=== PATIENT | male | born 1970 | race Caucasian/White ===

== ENCOUNTER → 2017-04-28 | Outpatient (CLI) | payer BC ==
[2017-04-28 17:35] LABS: BASO % 0.6 %; BASO ABS # 0.04 K/uL (0-0.2); COMPLETE YES; EOS % 1.6 %; HEMATOCRIT 44.4 % (42-52); IG% 0.2 %; LYMPH % 24.5 %; LYMPH ABS # 1.57 K/uL (1.2-3.4); MEAN CELL VOLUME 87.1 fL (80-100); MEAN CORPUSCULAR HEMOGLOBIN 29.8 pg (25-34); MEAN CORPUSCULAR HGB CONC 34.2 g/dl (32-36); MEAN PLATELET VOLUME 9.9 fL (7.4-10.4); MONO % 6.4 %; NEUT % 66.7 %; PLATELET COUNT 272 K/uL (130-400)
[2017-04-28 17:37] LABS: ALT/SGPT 24 U/L (12-78); BLOOD UREA NITROGEN 13 mg/dl (7-18); BUN/CREATININE RATIO 14.1 (10-20); CALCIUM 9.2 mg/dl (8.5-10.1); CARBON DIOXIDE 25 mmol/L (21-32); CHLORIDE 106 mmol/L (98-107); CHOLESTEROL 163 mg/dl (0-200); CREATININE 0.95 mg/dl (0.60-1.40); GLUCOSE 88 mg/dl (70-99); POTASSIUM 4.1 mmol/L (3.5-5.1); SODIUM 139 mmol/L (136-145)
[2017-04-28 17:40] LABS: ALB/GLOB RATIO 1.1 (0.9-2); ALKALINE PHOSPHATASE 80 U/L (45-117); AST/SGOT 19 U/L (15-37); CHOLESTEROL/HDL RATIO 3.5; HDL CHOLESTEROL 47 mg/dl; LDL CHOLESTEROL CALCULATED 99 mg/dl; TRIGLYCERIDES 85 mg/dl (0-150); VERY LOW DENSITY LIPOPROT CALC 17 mg/dl
[2017-04-29 07:00] LABS: ESTIMATED AVERAGE GLUCOSE 94 mg/dl; HA1C FLAG Normal (Normal)
== END | disposition home or self-care (01) ==
LOC: C.LABBFT 12:30
PROVIDERS: ATTEND Physician Assistant Medical
DX: E55.9 Vitamin D deficiency, unspecified (principal)

== ENCOUNTER → 2017-12-02 | Outpatient (CLI) | payer OTHER ==
[2017-12-02 13:30] LABS: BLOOD UREA NITROGEN 14 mg/dl (7-18); CALCIUM 9.4 mg/dl (8.5-10.1); CARBON DIOXIDE 28 mmol/L (21-32); CREATININE 0.93 mg/dl (0.60-1.40); GLUCOSE 86 mg/dl (70-99); SODIUM 138 mmol/L (136-145)
== END | disposition home or self-care (01) ==
LOC: C.LABBFT 08:29
PROVIDERS: ATTEND Internal Medicine
DX: I10 Essential (primary) hypertension (principal)

== ENCOUNTER 2018-10-22 08:24 | Inpatient (IN) ==
--- NOTE | 2018-09-30 08:47 | Anesthesiology Consultation ---
Date of Service September 30, 2018 Assessment & Plan Chart Review Chart Review: Acceptable Risk for Surgery and Patient NOT seen in Pre Admission Testing Consults Requested none ASA ASA3 Proposed Anesthesia Anesthesia Type: General Anesthesia Line Insertion: Arterial line History Surgery Operation Date: 10/22/18 07:30 Proposed Procedures p L3-L4, L4-L5 Laminectomy and Fusion - Devyn Mccrary DO Height/Weight Height: 5 ft 6 in Weight: 113.398 kg Allergies Allergy/AdvReac Type Severity Reaction Status Date / Time No Known Allergies Allergy Verified 09/30/18 07:50 Medications Home Medications Medication Instructions Recorded Confirmed Last Taken amlodipine 10 mg PO DAILY 09/30/18 09/30/18 Unknown cholecalciferol (vitamin D3) 1,000 unit PO DAILY 09/30/18 09/30/18 Unknown [Vitamin D3] losartan 100 mg PO DAILY 09/30/18 09/30/18 Unknown Past Medical History Medical History Chronic back pain PAIN/TINGLING RADIATING DOWN LEFT LEG. Degenerative disc disease Hypertension Obesity Past Surgical History Surgical History No history of previous surgery History of PONV No Motion Sickness Screening History of Motion Sickness: No Social History Smoking Status: Never smoker Do You Dip or Chew Tobacco: No Hx Alcohol Use: Yes Alcohol type: other alcohol intake frequency: holidays/special occasions only Alcohol Intake Frequency Comment: RARE Hx Substance Use: No substance use type: does not use Exercise / Class Metabolic Activity III < 4 Walking/Shop/Light housework Testing Electrocardiogram Date: 09/28/18 Findings: + NSR @ (at 75) Laboratory Results WBC: 6.35 Hc.6 Hct: 44.4 PLATELETS: 255 SODIUM: 139 POTASSIUM: 4.1 CHLORIDE:104 CO2: 29 BUN: 15 CREATININE: 0.88 GLUCOSE:96 PT: 11.3 PTT: 30.6 INR: 1.1 UA: TYPE AND SCREEN:
--- NOTE | 2018-10-21 14:52 | History and Physical Report ---
DATE OF ADMISSION: 10/22/2018 CHIEF COMPLAINT: Lower extremity pain, weakness, numbness and tingling and falling. Chon is 48. He is compromised. He has back and lower extremity difficulty, working as a fence laborer. Light duty work for him is somewhat difficult. He has been ongoing difficulty for many years in duration. Pain is worsened and he has weakness and curtailment of overall would function. PAST MEDICAL HISTORY: Positive for hypertension. No COPD, diabetes, carcinoma, connective tissue disorders, liver or kidney issues. PAST SURGICAL HISTORY: Denied. ALLERGIES: Negative. MEDICATIONS: Analgesics and one medication for hypertension. FAMILY HISTORY: Heart disease. SOCIAL HISTORY: He is . He is a fence laborer. No alcohol, tobacco. REVIEW OF SYSTEMS: He admits to joint pain, stiffness and weakness. He denies any fevers, sweats, chills. Denies any nausea, vomiting or bowel and bladder incontinence. Denies any chest pain, shortness of breath. Denies asthma, wheezing. OBJECTIVE: GENERAL: He is 5 feet 6 inches, 250s, in distress, concerned. His shows a concern. He is alert, oriented. VITAL SIGNS: Blood pressure 130/80, pulse 80, respiration 16. CARDIAC: Normal S1, S2. No S3. LUNGS: Clear to auscultation. ABDOMEN: Soft, nontender. SKIN: Intact. ABDOMEN: Soft as stated. MUSCULOSKELETAL: He has walking intolerance and decreased range of motion. He has quadriceps weakness, weakness with dorsiflexion, absent knee jerk reflex, decreased Achilles reflex, adequate push off strength. No upper motor or neuron issues. ASSESSMENT: Includes that of 2 level lumbar spinal pathology. PLAN: Includes a laminectomy and potential fusion L3-L4, L4-L5 lumbar spine.
[~2018-10-22 08:24] MED LIST: CEFAZOLIN 2000MG 2,000 MG/15 ML SYR IV SCH; LR 15ML/HR IV SCH; SODIUM CHLORIDE 0.9% 1,000 ML IV SCH
[2018-10-22] MEDS ORDERED: NEOSTIGMINE METHYLSULFATE 5 MG/5 ML SYR ONE (10:21)
[2018-10-22] MEDS ORDERED: ROCURONIUM BROMIDE 10 MG/ML 5 ML VIAL ONE (10:21)
[2018-10-22] MEDS ORDERED: fentaNYL citrate 100 MCG/2 ML VIAL ONE (10:21)
[2018-10-22] MEDS ORDERED: LIDOCAINE HCL 2% 2 ML VIAL/AMP(20MG/ML) INFIL ONE (10:21)
[2018-10-22] MEDS ORDERED: DEXAMETHASONE SOD INJ 4 MG/ML VIAL ONE (10:21)
[2018-10-22] MEDS ORDERED: PROPOFOL IV EMULSION 10 MG/ML 20 ML VIAL IV ONE (10:21)
[2018-10-22] MEDS ORDERED: GLYCOPYRROLATE 0.2 MG/ML VIAL ONE ×2 (10:21→14:05)
[2018-10-22] MEDS ORDERED: MIDAZOLAM HCL 1 MG/ML 2ML VIAL ONE (10:21)
[2018-10-22] MEDS ORDERED: ONDANSETRON INJ 2 MG/ML 2 ML VIAL ONE (10:21)
[2018-10-22] MEDS ORDERED: KETAMINE HCL INJ 50 MG/ML 10 ML VIAL ONE (10:22)
[2018-10-22] MEDS ORDERED: HYDROmorphone INJ 2 MG/ML SYR/VIAL ONE (10:25)
[2018-10-22] MEDS ORDERED: VANCOMYCIN HCL 1000MG/20ML VIAL ONE (12:10)
[2018-10-22] MEDS ORDERED: GELATIN SPONGE SZ 100 ONE ×2 (12:10→14:12)
[2018-10-22] MEDS ORDERED: THROMBIN FOR SOLN 20000 UNIT KIT ONE (12:10)
[2018-10-22] MEDS ORDERED: BACITRACIN INJ 50,000 UNIT VIAL ONE (12:10)
[2018-10-22] MEDS ORDERED: BUPIVACAINE/EPINEPHRINE 0.5% MPF 1:200,000 30 ML VIAL ONE (12:11)
--- NOTE | 2018-10-22 12:36 | History & Physical Bridge Note ---
Date of Service October 22, 2018 History & Physical Bridge Note I have examined the patient, reviewed the History & Physical and in the interval since the performance of the History & Physical I have noted the following changes of clinical significance: no changes noted
[2018-10-22] MEDS ORDERED: ONDANSETRON INJ 2 MG/ML 2 ML VIAL IV PRN ×2 (13:40→15:41)
[2018-10-22] MEDS ORDERED: ePHEDrine sulfate 50 MG/ML AMP IV PRN (13:40)
[2018-10-22] MEDS ORDERED: HYDROmorphone INJ 1 MG/ML SYRINGE IV PRN ×3 (13:40→15:41)
[2018-10-22] MEDS ORDERED: NALOXONE HCL 0.4 MG/1 ML VIAL/CARP IV PRN (13:40)
[2018-10-22] MEDS ORDERED: ATROPINE SULFATE 0.1 MG/ML 10ML SYR IV PRN (13:40)
[2018-10-22] MEDS ORDERED: PROMETHAZINE HCL 12.5 MG in SODIUM CHLORIDE 0.9% 50 ML IV PRN (13:40)
[2018-10-22] MEDS ORDERED: FLUMAZENIL 0.1 MG/1 ML 10 ML VIAL IV PRN (13:40)
[2018-10-22] MEDS ORDERED: LABETALOL HCL IV 5 MG/ML 20ML IV PRN (13:40)
[2018-10-22] MEDS ORDERED: ePHEDrine sulfate 50 MG/ML SYR ONE (13:49)
[2018-10-22] MEDS ORDERED: PHENYLEPHRINE HCL 10 MG/ML VIAL ONE (14:03)
[2018-10-22] MEDS ORDERED: ePHEDrine sulfate 50 MG/ML AMP ONE (14:03)
--- NOTE | 2018-10-22 14:42 | Post Operative Brief Note ---
Immediate Post Op Note v1 Date of Surgery October 22, 2018 Pre & Post Diagnosis Operation Date: 10/22/18 10:20 Pre-Op Diagnosis: LUMBAR SPINAL STENOSIS, DISC HERNIATION L3-L4, L4-L5 Post-Op Diagnosis: LUMBAR SPINAL STENOSIS, DISC HERNIATION L3-L4, L4-L5 Procedure Operation Date: 10/22/18 10:20 Actual Procedures p L3-L4, L4-L5 Laminectomy (Not Applicable) - Devyn Mccrary DO Fusion L3-5 without instrumentation Surgeon Devyn Mccrary DO Ambulatory Services Representative bren Estimated Blood Loss 400 Findings Consistent with Post-Op Diagnosis Drains Mclain Catheter and Hemovac Drain
--- NOTE | 2018-10-22 15:07 | Fluoroscopy Report ---
FL spine 1V any level HISTORY: Laminectomy. FLUOROSCOPY TIME: 2 seconds. FINDINGS: Intraoperative fluoroscopy was provided for the lumbar spine. 2 fluoroscopic spot images we re obtained. IMPRESSION: Fluoroscopy provided for a low lumbar laminectomy. The above report was generated using voice recognition software. It may contain grammatical, syntax or spelling errors. Electronically signed by: Guzman Lockwood M.D. 10/22/2018 3:06 PM
--- NOTE | 2018-10-22 15:22 | Anesthesiology Progress Note ---
Date of Service October 22, 2018 Anesthesia Post Procedure Vital Signs Vital Signs: Temp Pulse Pulse Resp BP Pulse Ox 10/22/18 15:15 90 18 121/57 L 93 10/22/18 15:05 103 H 16 106/57 L 93 10/22/18 14:55 109 H 16 120/55 L 98 10/22/18 14:46 36.5 C 103 H 16 93/55 L 98 10/22/18 08:53 37.0 C 87 20 161/93 H 97 Notes Mental Status: alert / awake / arousable Patient Amnestic to Procedure: Yes Nausea / Vomiting: adequately controlled Pain: adequately controlled Airway Patency, RR, SpO2: stable & adequate BP & HR: stable & adequate Hydration State: stable & adequate Anesthetic Complications: no major complications apparent
[2018-10-22] MEDS ORDERED: MAGNESIUM HYDROXIDE SUSP 30 ML UDC PO PRN (15:41)
[2018-10-22] MEDS ORDERED: OXYCODONE HCL IR 5 MG TAB (IMMEDIATE RELEASE) PO PRN ×2 (15:41)
[2018-10-22] MEDS ORDERED: ACETAMINOPHEN 500 MG TAB PO PRN (15:41)
[2018-10-22] MEDS: KETOROLAC 30 MG/ML VIAL IV SCH ×2 (17:57→21:20)
[2018-10-22] MEDS: SODIUM CHLORIDE 0.9% 1000ML 1,000 ML IV SCH (17:57)
[2018-10-22] MEDS ORDERED: INFLUENZA ADMINISTRATION CHARGE ONE (19:45)
[2018-10-22] MEDS ORDERED: INFLUENZA VIRUS QUAD VACCINE 0.5 ML SYR IM ONE (19:45)
[2018-10-22] MEDS: CEFAZOLIN 2000MG 2,000 MG/15 ML SYR IV SCH (20:27)
[2018-10-22] MEDS: DOCUSATE SODIUM 100 MG CAP PO SCH (20:27)
[2018-10-23] MEDS: KETOROLAC 30 MG/ML VIAL IV SCH (04:33)
[2018-10-23] MEDS: CEFAZOLIN 2000MG 2,000 MG/15 ML SYR IV SCH ×2 (04:33→13:20)
[2018-10-23] MEDS: SODIUM CHLORIDE 0.9% 1000ML 1,000 ML IV SCH (04:54)
--- NOTE | 2018-10-23 07:57 | Operative Report ---
DATE OF OPERATION: 10/22/2018 PREOPERATIVE DIAGNOSIS: Severe spinal stenosis lumbar spine, L3-L4, L4-L5; disc herniation, L3-L4 lumbar spine; severe arthritis, lumbar spine. POSTOPERATIVE DIAGNOSIS: Same. PROCEDURE: Included a posterior approach laminectomy and decompression of neural elements, L3, L4, L5 with a complete laminectomy of 3 levels. Foraminotomies, partial facetectomies also provided. Posterior lateral fusion with bone graft, combination of autograft and allograft, grafting out of the facet joints and transverse processes. SURGEON: Devyn Mccrary DO DEVELOPER PROGRAMMER: SARAH Epps COMPLICATIONS: Zero. BLOOD LOSS: 400 mL. Comorbidities would be morbid obesity. DESCRIPTION OF PROCEDURE: The patient was taken to the operating room and general intubated anesthetic provided to the patient, placed prone, shaved, scrubbed, prepped, draped sterile. We made a skin incision, fascial incision down to the lamina. I put in a deep self-retaining retractor. We meticulously dissected the soft tissues. There was profound stenosis at L3-L4, L4-L5. There was a herniation at L3-L4 as well. We carefully and meticulously dug out the stenosis at these involved levels. It was quite significant. I assessed the patient throughout the case radiographically and visually and felt there was no true gross instability such as a spondylolisthesis or scoliosis. Through this analysis, I did not feel instrumentation was required. We then bone grafted out of the transverse processes and facet joints with allograft and autograft. Then we closed meticulously over Hemovac drain over vancomycin powder. We irrigated with approximately 500 mL of fluid. Closed fascia to fascia with #1 Vicryl suture, 2-0 and staple gun on the skin. Sterile dressings applied. The patient returned supine, extubated to PACU stable. No apparent complications. I attest to the content of the Intraoperative Record and any orders documented therein. Any exception s are noted below.
[2018-10-23] MEDS: LOSARTAN POTASSIUM 50 MG TAB PO SCH (08:36)
[2018-10-23] MEDS: DOCUSATE SODIUM 100 MG CAP PO SCH ×2 (08:36→20:48)
[2018-10-23] MEDS: AMLODIPINE BESYLATE 5 MG TAB PO SCH (08:36)
[2018-10-23] MEDS: CHOLECALCIFEROL 1,000 UNITS TAB PO SCH (08:36)
--- NOTE | 2018-10-23 09:41 | Anesthesiology Progress Note ---
Date of Service October 23, 2018 Anesthesia Post Procedure Vital Signs Vital Signs: Temp Pulse Pulse Resp BP Pulse Ox 10/23/18 07:49 36.9 C 69 16 163/88 H 94 10/23/18 04:30 36.6 C 74 16 125/73 94 10/22/18 22:54 36.7 C 79 16 108/63 95 10/22/18 18:58 37.1 C 83 18 124/69 94 10/22/18 17:46 36.4 C L 84 18 114/61 94 10/22/18 16:45 36.5 C 82 18 102/63 91 10/22/18 16:16 36.8 C 77 18 98/60 L 91 10/22/18 15:45 36.9 C 83 18 106/66 90 10/22/18 15:30 36.8 C 86 20 105/57 L 94 10/22/18 15:15 90 18 121/57 L 93 10/22/18 15:05 103 H 16 106/57 L 93 10/22/18 14:55 109 H 16 120/55 L 98 10/22/18 14:46 36.5 C 103 H 16 93/55 L 98 Pain Intensity Bilateral Back: Pain Intensity: 1 Notes Mental Status: alert / awake / arousable Patient Amnestic to Procedure: Yes Nausea / Vomiting: adequately controlled Pain: adequately controlled Airway Patency, RR, SpO2: stable & adequate BP & HR: stable & adequate Hydration State: stable & adequate Anesthetic Complications: no major complications apparent
[2018-10-24] MEDS ORDERED: BISACODYL 5 MG TABEC PO PRN (06:00)
[2018-10-24 06:15] LABS: Basophils # (auto) 0.04 K/uL (0-0.2); Basophils % (auto) 0.4 %; Hematocrit (blood only) 38.3 % (42-52); Hemoglobin 12.2 g/dL (14.0-18.0); Immature Granulocytes # (auto) 0.03 K/uL (0.00-0.02); Immature Granulocytes % (auto) 0.3 %; Lymphocytes # (auto) 2.08 K/uL (1.2-3.4); Lymphocytes % (auto) 20.6 %; Mean Corpuscular Hgb Conc 31.9 g/dL (32-36); Mean Corpuscular Volume 90.1 fL (80-100); Mean Platelet Volume 9.6 fL (7.4-10.4); Monocytes # (auto) 0.95 K/uL (0.11-0.59); Monocytes % (auto) 9.4 %; Neutrophils # (auto) 6.92 K/uL (1.4-6.5); Neutrophils % (auto) 68.3 %; Platelet Count 257 K/uL (130-400); RDW Coefficient of Variation 13.6 % (11.5-14.5); RDW Standard Deviation 44.8 fL (36.4-46.3); Red Blood Count 4.25 M/uL (4.7-6.1); White Blood Count 10.12 K/uL (4.8-10.8)
[2018-10-24] MEDS ORDERED: POLYETHYLENE (MIRALAX) 17 GM PACK PO SCH (09:00)
[2018-10-24] MEDS: CHOLECALCIFEROL 1,000 UNITS TAB PO SCH (09:14)
[2018-10-24] MEDS: DOCUSATE SODIUM 100 MG CAP PO SCH (09:14)
[2018-10-24] MEDS: AMLODIPINE BESYLATE 5 MG TAB PO SCH (09:14)
[2018-10-24] MEDS: LOSARTAN POTASSIUM 50 MG TAB PO SCH (09:14)
--- NOTE | 2018-10-24 10:20 | Discharge Summary ---
SUBJECTIVE: He is doing well. He is 2 days post-laminectomy of the lumbar spine and posterolateral fusion. He has made a nice recovery. He has had an uneventful stay. He has no confusion. No chest pain, shortness of breath, or calf tenderness. OBJECTIVE: Afebrile. Moves extremities. Passed physical therapy. ASSESSMENT: Delightful gentleman post-surgery. PLAN: We will discharge him home today. He has instructions, precautions, warnings given to him at the office and here at the hospital. He has prescriptions on his chart. He has a followup appointment. He needs to be careful with bending, stooping and lifting and just allow himself to mend over the next 2 weeks.
== END 2018-10-24 09:56 | disposition home or self-care (01) | DRG 460 ==
LOC: ASU 08:24 → 3E 15:03